=== PATIENT | female | born 1950 | race Caucasian/White ===

== ENCOUNTER 2020-10-11 06:00 | Outpatient (RCR) | payer MEDICARE, OTHER, SELFPAY | END 2020-10-29 23:59 | disposition home or self-care (01) | LOC: WPT 06:00 | PROVIDERS: PCP Physician Assistant Medical; Referring Provider Family Medicine; Visit Provider Family Medicine | DX: M48.05 Spinal stenosis, thoracolumbar region (principal) | CPT/HCPCS: 97110; 97112; 97140; 97161 ==

== ENCOUNTER 2020-10-30 06:00 | Outpatient (RCR) | payer MEDICARE, OTHER, SELFPAY | END 2020-11-29 23:59 | disposition home or self-care (01) | LOC: WPT 06:00 | PROVIDERS: PCP Physician Assistant Medical; Referring Provider Family Medicine; Visit Provider Family Medicine | DX: M48.05 Spinal stenosis, thoracolumbar region (principal) | CPT/HCPCS: 97110 ==

== ENCOUNTER → 2021-02-08 15:24 | Outpatient (BNVA) | payer MEDICARE, OTHER, SELFPAY | PROVIDERS: PCP Physician Assistant Medical; Visit Provider Internal Medicine | DX: K51.90 Ulcerative colitis, unspecified, without complications (principal) | CPT/HCPCS: 80053; 85651; 86140 ==

== ENCOUNTER → 2021-03-01 11:00 | Outpatient (BNVA) | payer MEDICARE, OTHER, SELFPAY | PROVIDERS: PCP Physician Assistant Medical; Visit Provider Internal Medicine | DX: D64.9 Anemia, unspecified (principal) | CPT/HCPCS: 82607; 82746; 83550; 84443; 85045 ==

== ENCOUNTER → 2021-06-08 09:05 | Outpatient (BNVA) | payer MEDICARE, OTHER, SELFPAY | PROVIDERS: PCP Internal Medicine; Visit Provider Physician Assistant | DX: M47.894 Other spondylosis, thoracic region (principal); M54.6 Pain in thoracic spine | CPT/HCPCS: 72072; 72110 ==

== ENCOUNTER 2021-08-01 16:03 | Outpatient (CLI) | payer MEDICARE, OTHER, SELFPAY ==
--- NOTE | 2021-08-01 16:45 | MR_ITS ---
WS: [id number] MRI LUMBAR SPINE NONCONTRAST HISTORY: M41.9 - Scoliosis, unspecified COMPARISON: 08/26/2020 TECHNIQUE: Sagittal and axial multisequence imaging is submitted. Reversal of the normal cervical lordosis with mild narrowing of the central cervical canal at C4-5 an d C5-6. Additional small disc protrusions throughout the thoracic spine without contact on the cord. Reactive marrow edema noted in the lower thoracic vertebral bodies. No fracture identified. Moderate LEFT curvature of the lumbar spine. Disregard narrowed and desiccated throughout the lumbar spine. No lumbar spine fracture. Conus terminates normally at L1-2 disc level. L5 anterolisthesis by 5 mm. L1-L2: Marked annular disc bulging with ligamentum flavum hypertrophy and facet arthritis. Mild centr al, bilateral subarticular recess and foraminal stenosis. L2-L3: Diffuse annular disc bulge. Bilateral moderate ligamentum flavum disease and facet arthritis. Disc encroachment upon the ventral thecal sac and lateral recesses. There is moderate narrowing of th e LEFT subarticular recess and proximal LEFT foramen. There is disc contact on the LEFT L2 and L3 ner ve roots. Mild disc contact on the RIGHT L3 traversing nerve root. L3-L4: Diffuse asymmetric disc bulging. Mild ligamentum flavum disease and facet arthritis. There is moderate central and bilateral subarticular recess stenosis. Slightly greater narrowing involving the LEFT subarticular recess. Mild foraminal narrowing. L4-L5: Diffuse asymmetric disc bulging. Ligamentum flavum and facet arthritis. Deformity thecal sac d ue to the scoliosis and spondylitic changes. There is mild central and bilateral subarticular recess stenosis. Only minimal foraminal narrowing. L5-S1: Diffuse annular disc bulge. Small central disc protrusion contacts the thecal sac. There is di sc contacting the thecal sac and ligamentum flavum hypertrophy. Mild RIGHT and moderate LEFT foramina l stenosis. There is encroachment upon the LEFT S1 and L5 nerve root. MR/MR lumbar spine wo con* [id number] IMPRESSION: 1. Moderate degenerative levoscoliosis lumbar spine. Levoscoliosis is contribu ting to the stenosis throughout the lumbar spine. 2. No fracture. 3. L5 anterolisthesis by 5 mm. 4. Moderate degenerative disc disease throughout the lumbar spine. 5. Mild central, bilateral subarticular recess and foraminal stenosis at L1-2. 6. Moderate LEFT subarticular recess and LEFT foramen. Disc contacts the LEFT L2 and L3 nerve roots. Mild central stenosis. 7. Moderate central and bilateral subarticular recess stenosis L3-4 due to dis c and facet arthritis. 8. Mild central and bilateral subarticular recess stenosis at L4-5. 9. Moderate LEFT foraminal stenosis and mild RIGHT foraminal stenosis at L5-S1 . Mild encroachment upon the LEFT L5 and S1 nerve roots.
== END 2021-08-01 16:04 | disposition home or self-care (01) ==
LOC: RAD 16:13
PROVIDERS: PCP Internal Medicine; Visit Provider Physician Assistant
DX: M41.9 Scoliosis, unspecified (principal); M51.36 Other intervertebral disc degeneration, lumbar region
CPT/HCPCS: 72148

== ENCOUNTER → 2021-08-08 11:25 | Outpatient (BNVA) | payer MEDICARE, OTHER, SELFPAY | PROVIDERS: PCP Internal Medicine; Visit Provider Physician Assistant | DX: M41.9 Scoliosis, unspecified (principal); M51.36 Other intervertebral disc degeneration, lumbar region; M48.061 Spinal stenosis, lumbar region without neurogenic claudication | CPT/HCPCS: 99204; 99999 ==

== ENCOUNTER → 2021-08-09 09:12 | Outpatient (BNVA) | payer MEDICARE, OTHER, SELFPAY | PROVIDERS: PCP Internal Medicine; Referring Provider Physician Assistant; Visit Provider Anesthesiology Pain Medicine | DX: G89.29 Other chronic pain (principal); M51.36 Other intervertebral disc degeneration, lumbar region; M41.9 Scoliosis, unspecified; M48.061 Spinal stenosis, lumbar region without neurogenic claudication; Z79.891 Long term (current) use of opiate analgesic; Z87.891 Personal history of nicotine dependence; M79.604 Pain in right leg; M79.605 Pain in left leg | CPT/HCPCS: 99205 ==

== ENCOUNTER → 2021-09-26 11:08 | Outpatient (BNVA) | payer MEDICARE, OTHER, SELFPAY | PROVIDERS: PCP Internal Medicine; Visit Provider Anesthesiology Pain Medicine | DX: G89.29 Other chronic pain (principal); M48.061 Spinal stenosis, lumbar region without neurogenic claudication; M51.36 Other intervertebral disc degeneration, lumbar region; M41.9 Scoliosis, unspecified; M79.604 Pain in right leg; M79.605 Pain in left leg; Z79.891 Long term (current) use of opiate analgesic; Z87.891 Personal history of nicotine dependence | CPT/HCPCS: 99212 ==

== ENCOUNTER 2021-12-25 06:53 | Day surgery (SDC) | payer MEDICARE, OTHER, SELFPAY ==
[2021-12-21 08:34] VITALS: BMI 34.4
[2021-12-25 07:15] VITALS: BP 176/90; PULSE 64; RESP 18; TEMP 36.1; O2SAT 95
[2021-12-25] MEDS: sodium chloride 0.9% 1,000 ML 30 ML IV (07:29)
--- NOTE | 2021-12-25 07:45 | W.PM.OPSFHP ---
Same Day Surgery H&P Indication for Procedure/HPI DATE OF PROCEDURE: December 25, 2021 CHIEF COMPLAINT/INDICATIONFOR SURGICAL PROCEDURE: UC PREOP DIAGNOSIS: UC PLANNED PROCEDURE: Operation Date: 12/25/21 08:45 Proposed Procedures p colonoscopy 63657/K51.90(Not Applicable) - Geovanny Norman MD Medications/Allergies* Home Medications Medication Instructions Recorded Confirmed Type acetaminophen 500 mg tablet 500 mg PO Q6H PRN Pain 01/23/21 12/25/21 History calcium carbonate 300 mg (750 mg) 300 mg PO BID PRN Heartburn 01/23/21 12/25/21 History chewable tablet (Tums E-X) clobetasol 0.05 % topical ointment 1 applic topical BID 01/23/21 12/25/21 History fluticasone propionate 50 1 spray intranasal DAILY PRN 01/23/21 12/21/21 History mcg/actuation nasal allergies spray,suspension (Allergy Relief (fluticasone)) loteprednol etabonate 0.38 % eye 1 drp ophthalmic (eye) TID PRN Dry 01/23/21 12/25/21 History gel drops Eyes buspirone 10 mg tablet 10 mg PO BID 02/08/21 12/25/21 History citalopram 10 mg tablet 10 mg PO DAILY 09/14/21 12/25/21 History cannabis 250mg as directed 2XD PRN Pain 10/04/21 12/06/21 History Allergies/Adverse Reactions Allergy/AdvReac Type Severity Reaction Status Date / Time amoxicillin Allergy Severe swelling Verified 12/21/21 08:27 diclofenac Allergy Severe nausea and Verified 12/21/21 08:27 vomiting meperidine Allergy Intermediate Unknown Verified 12/21/21 08:27 Current Medications: Generic Name Dose Route Start Last Admin Trade Name Freq PRN Reason Stop Dose Admin Sodium Chloride 1,000 mls @ 30 mls/hr 12/25/21 07:15 12/25/21 07:29 Sodium Chloride 0.9% IV 30 mls/hr .Q24H LAN Administration Pertinent History/Comorbid Conditions* Family History (Updated 10/04/21 @ 10:48 by Blanca Lira) Dementia Sister Mother Lung disease Father Cancer Sister Hypertension Mother Stroke Father Social History Smoking and tobacco status: former smoker Alcohol intake: current Alcohol intake frequency: few times a week Pertinent Exam Findings alert, oriented x 3, clear to auscultation bilaterally, regular rate & rhythm, operative site marked and procedure specific exam findings Recommendations Surgery/Procedure today Coding Level of Care Code Acute Sales Account Director for [facility] Adelita
--- NOTE | 2021-12-25 08:46 | ANES.PREANE2 ---
Pre-Anesthetic Assessment Height/Weight: Height 1.7 m Weight 99.79 kg Temp Pulse Resp BP Pulse Ox O2 Del Method 97.0 F L 64 18 176/90 95 12/25/21 07:15 12/25/21 07:15 12/25/21 07:15 12/25/21 07:15 12/25/21 07:15 12/25/21 07:15 Preop Diagnosis: UC Operation Date: 12/25/21 08:45 Proposed Procedures p colonoscopy 45846/K51.90(Not Applicable) - Geovanny Norman MD Familial anesthetic complications: none Was Beta Debby taken within 24 hours: N/A Was Clonidine taken within 24 hours: N/A Last intake: Intake Last Liquid Date 12/24/21 Last Liquid Time 21:00 Last Solid Date 12/23/21 Last Solid Time 18:00 Social No alcohol and No tobacco Exam alert, oriented x 3, clear to auscultation bilaterally and regular rate & rhythm Airway Submandibular: within normal limits Cervical ROM: within normal limits Mallampati: Class II Dentition: full CV/HEM Anemia and Hypertension Metabolic Morbid Obesity and Thyroid Disease [facility] [place] Lower Back Pain Anesthetic Plan ASA status: 3 Anesthesia: MAC Medications/Allergies Home Medications Medication Instructions Recorded Confirmed Last Taken Type acetaminophen 500 mg tablet 500 mg PO Q6H PRN Pain 01/23/21 12/25/21 1 Month Ago History ~11/24/21 calcium carbonate 300 mg (750 mg) 300 mg PO BID PRN Heartburn 01/23/21 12/25/21 2 Months Ago History chewable tablet (Tums E-X) ~10/24/21 clobetasol 0.05 % topical ointment 1 applic topical BID 01/23/21 12/25/21 3 Months Ago History ~09/24/21 fluticasone propionate 50 1 spray intranasal DAILY PRN 01/23/21 12/21/21 Unknown History mcg/actuation nasal allergies spray,suspension (Allergy Relief (fluticasone)) loteprednol etabonate 0.38 % eye 1 drp ophthalmic (eye) TID PRN Dry 01/23/21 12/25/21 12/25/21 05:00 History gel drops Eyes buspirone 10 mg tablet 10 mg PO BID 02/08/21 12/25/21 12/24/21 History amlodipine 2.5 mg tablet 2.5 mg PO DAILY #90 tabs 09/04/21 12/25/21 12/24/21 Rx mesalamine 1.2 gram tablet,delayed 4.8 g PO DAILY #120 tabs 09/04/21 12/25/21 12/24/21 Rx release (Lialda) citalopram 10 mg tablet 10 mg PO DAILY 09/14/21 12/25/21 12/24/21 History cannabis 250mg as directed 2XD PRN Pain 10/04/21 12/06/21 3 Months Ago History ~09/24/21 adalimumab 40 mg/0.8 mL 80 mg (1.6 mL) SUBCUT Q10D Q10d #6 10/11/21 12/25/21 12/24/21 Rx subcutaneous syringe kit (Humira) ea levothyroxine 25 mcg capsule 25 mcg PO DAILY #30 caps 11/28/21 12/25/21 12/25/21 05:00 Rx lisinopril 20 mg tablet 20 mg PO DAILY #90 tabs 12/08/21 12/25/21 12/24/21 Rx Allergies Allergy/AdvReac Type Severity Reaction Status Date / Time amoxicillin Allergy Severe swelling Verified 12/21/21 08:27 diclofenac Allergy Severe nausea and Verified 12/21/21 08:27 vomiting meperidine Allergy Intermediate Unknown Verified 12/21/21 08:27 Current Medications Generic Name Dose Route Start Last Admin Trade Name Freq PRN Reason Stop Dose Admin Sodium Chloride 1,000 mls @ 30 mls/hr 12/25/21 07:15 12/25/21 07:29 Sodium Chloride 0.9% IV 30 mls/hr .Q24H LAN Administration PFSH Anesthesia Family History Sister Cancer Sister Dementia Mother Dementia Hypertension Father Lung disease Stroke Social History Smoking and tobacco status: former smoker Alcohol intake: current Alcohol intake frequency: few times a week Data Anesthesia Cardiac Studies: No Data to Display
--- NOTE | 2021-12-25 09:14 | ANE.PACU2 ---
Inpatient post-anesthesia follow up: Airway intact: Yes Vital signs: Temperature 97.0 F Pulse Rate 64 Respiratory Rate 18 Blood Pressure 176/90 Pulse Oximetry 95 Oxygen Delivery Me thod Room Air Oxygen Flow Rate Fraction of Inspir ed Oxygen Hydration adequate: Yes Nausea and vomiting: No Pain level: 1 Mental status: Baseline
[2021-12-25 09:15] VITALS: BP 137/76; PULSE 65; RESP 18; TEMP 36.1; O2SAT 96
[2021-12-25 09:24] VITALS: BP 138/80; PULSE 64; RESP 18; O2SAT 96
--- NOTE | 2021-12-25 15:48 | ANE.PACU2 ---
Inpatient post-anesthesia follow up: Airway intact: Yes Vital signs: Temperature 97.0 F Pulse Rate 64 Respiratory Rate 18 Blood Pressure 138/80 Pulse Oximetry 96 Oxygen Delivery Me thod Room Air Oxygen Flow Rate Fraction of Inspir ed Oxygen Hydration adequate: Yes Nausea and vomiting: No Pain level: 1 Mental status: Baseline
== END 2021-12-25 09:35 | disposition home or self-care (01) ==
PROVIDERS: PCP Internal Medicine; Visit Provider Internal Medicine
PROC: 0DJD8ZZ Inspection of Lower Intestinal Tract, Via Natural or Artificial Opening Endoscopic (ICD-10-PCS; CPT 45378; principal; 2021-12-25 08:45)
DX: K51.90 Ulcerative colitis, unspecified, without complications (principal); I10 Essential (primary) hypertension; E66.01 Morbid (severe) obesity due to excess calories; Z68.34 Body mass index [BMI] 34.0-34.9, adult; Z87.891 Personal history of nicotine dependence
CPT/HCPCS: 45380; 82274; 83630; 87493; 87506; 88305; J2704; J7030

== ENCOUNTER 2022-05-02 10:08 | Outpatient (CLI) | payer MEDICARE, OTHER, SELFPAY ==
--- NOTE | 2022-05-02 10:15 | MM_ITS ---
WS: [id number] BILATERAL SCREENING DIGITAL TOMOSYNTHESIS MAMMOGRAM WITH CAD HISTORY: SCREENING COMPARISON: 12/29/2020, 12/08/2019 Bilateral CC and MLO views with tomosynthesis and synthetic mammography submitted. Computer aided det ection analyzed. Breast composition: There are scattered areas of fibroglandular density. No suspicious masses, microc alcifications or architectural distortion. Benign calcifications. Lymph node upper outer quadrant RIG HT breast. MM/[place] [id number] IMPRESSION: BI-RADS: 2-Benign FOLLOW UP: 1 Year Follow-up
== END 2022-05-02 10:09 | disposition home or self-care (01) ==
LOC: RAD 10:09
PROVIDERS: PCP Internal Medicine; Visit Provider Internal Medicine
DX: Z12.31 Encounter for screening mammogram for malignant neoplasm of breast (principal); G89.29 Other chronic pain; M54.12 Radiculopathy, cervical region; M47.812 Spondylosis without myelopathy or radiculopathy, cervical region; M48.061 Spinal stenosis, lumbar region without neurogenic claudication; M51.36 Other intervertebral disc degeneration, lumbar region; M41.9 Scoliosis, unspecified
CPT/HCPCS: 72040; 77063; 77067; 99214

== ENCOUNTER 2022-05-07 12:33 | Outpatient (CLI) | payer MEDICARE, OTHER, SELFPAY ==
--- NOTE | 2022-05-07 13:00 | MR_ITS ---
WS: [id number] MRI CERVICAL SPINE NONCONTRAST HISTORY: M54.12 - Radiculopathy, cervical region COMPARISON: None available. Technique: Multiplanar, multisequence noncontrast imaging of the cervical spine. Straightening and reversal normal cervical lordosis centered at C4-5. Disc spaces are all moderately narrowed. C3 anterolisthesis by 3 mm. C5 retrolisthesis by 3 mm. Signal within the cervical cord is normal. Visualized posterior fossa is unremarkable. Craniocervical junction, C1 and C2 relationship, odontoid process and soft tissues are normal. C2-C3: No stenosis. Bilateral facet joint arthritis. Small amount of edema involving the RIGHT facet joint. C3-C4: Mild disc bulging and osteophytic ridging. Very mild bilateral foraminal stenosis. C4-C5: Moderate osteophytic ridging encroaching upon the ventral thecal sac and foramina. No disc pro trusions. Mild central with moderate foraminal stenosis. C5-C6: Narrowing of the central canal due to retrolisthesis of C5. Near complete effacement at C5-6 o f CSF. Moderate to severe central and bilateral foraminal stenosis. C6-C7: Mild osteophytic ridging with diffuse disc bulging and a central disc protrusion. Mild central and RIGHT foraminal stenosis. Moderate LEFT foraminal stenosis. C7-T1: Small central disc protrusion. Very mild foraminal stenosis. Paraspinal soft tissue are normal. MR/MR cervical spin wo con* [id number] IMPRESSION: 1. Advanced spondylitic changes throughout the cervical spine. 2. Reversal the normal cervical lordosis centered at C4-5. 3. Moderate to severe central and bilateral foraminal stenosis at C5-6 predom inantly due to osteophyte and bone hypertrophy. 4. Mild RIGHT facet joint arthropathy at C2-3. 5. Mild central with moderate foraminal stenosis at C4-5. 6. Moderate LEFT foraminal stenosis at C6-7 with mild central and RIGHT forami nal stenosis. 7. Very small central disc protrusion at C7-T1.
== END 2022-05-07 12:34 | disposition home or self-care (01) ==
LOC: RAD 12:38
PROVIDERS: PCP Internal Medicine; Visit Provider Anesthesiology Pain Medicine
DX: M54.12 Radiculopathy, cervical region (principal); M50.23 Other cervical disc displacement, cervicothoracic region; M48.02 Spinal stenosis, cervical region; M47.812 Spondylosis without myelopathy or radiculopathy, cervical region
CPT/HCPCS: 72141

== ENCOUNTER → 2022-06-05 09:06 | Outpatient (BNVA) | payer MEDICARE, OTHER, SELFPAY | PROVIDERS: PCP Internal Medicine; Visit Provider Anesthesiology Pain Medicine | DX: M79.18 Myalgia, other site (principal); G89.29 Other chronic pain; M47.812 Spondylosis without myelopathy or radiculopathy, cervical region; M48.061 Spinal stenosis, lumbar region without neurogenic claudication; M51.36 Other intervertebral disc degeneration, lumbar region; M41.9 Scoliosis, unspecified | CPT/HCPCS: 20553; 99214 ==

== ENCOUNTER → 2022-07-04 09:10 | Outpatient (BNVA) | payer MEDICARE, OTHER, SELFPAY | PROVIDERS: PCP Internal Medicine; Visit Provider Anesthesiology Pain Medicine | DX: G89.29 Other chronic pain (principal); M48.061 Spinal stenosis, lumbar region without neurogenic claudication; M41.9 Scoliosis, unspecified; M51.36 Other intervertebral disc degeneration, lumbar region; M47.812 Spondylosis without myelopathy or radiculopathy, cervical region; M79.604 Pain in right leg; M79.605 Pain in left leg | CPT/HCPCS: 99214 ==

== ENCOUNTER → 2022-08-01 09:32 | Outpatient (BNVA) | payer MEDICARE, OTHER, SELFPAY | PROVIDERS: PCP Internal Medicine; Visit Provider Anesthesiology Pain Medicine | DX: G89.29 Other chronic pain (principal); M48.061 Spinal stenosis, lumbar region without neurogenic claudication; M51.36 Other intervertebral disc degeneration, lumbar region; M47.812 Spondylosis without myelopathy or radiculopathy, cervical region; M41.9 Scoliosis, unspecified | CPT/HCPCS: 99214 ==

== ENCOUNTER 2022-08-20 09:55 | Emergency (ER) | payer MEDICARE, OTHER, SELFPAY ==
[2022-08-20] VITALS (30 sets, daily range): BP systolic 161–228; BP diastolic 74–118; PULSE 54–64; RESP 15–25; TEMP 36.4; O2SAT 94–98; BMI 34.4
--- NOTE | 2022-08-20 10:04 | ECG_ITS ---
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 Measurements Intervals [employer] Rate: 57 P: 44 MS: 226 QRS: 12 QRSD: 110 T: 30 QT: 397 QTc: 387 Interpretive Statements SINUS BRADYCARDIA WITH FIRST DEGREE AV BLOCK No previous ECG available for comparison Electronically Signed On 08-20-2022 16:28:57 CDT by Lakhwinder Morrow M.D. [id number] f
--- NOTE | 2022-08-20 10:24 | ED_ITS ---
HPI - Chest Pain General: Chief Complaint: Chest Pain Stated Complaint: High bloodpressure and chest heaviness Time Seen by Provider: 08/20/22 10:06 Source: patient Mode of arrival: ambulatory History of Present Illness: 72 female who presents to the emergency room with worsening blood pressure. Mild chest discomfort she denies any shortness of breath. She has been taking all of her regular medications. No radiation to the neck arms or back no known history of coronary artery disease. MD complaint: chest pain Onset (ago): minute(s) Timing of current episode: episodic Prior episodes: No Onset: during rest Pain radiation: none Severity: mild Quality: tightness, aching and heaviness Relieving factors: nothing Exacerbating factors: nothing Associated symptoms: Deny abdominal pain, diaphoresis, dyspnea, fever(s), leg edema, nausea, palpitations, sense of impending doom, syncope or vomiting Treatment prior to arrival: none Review of Systems Const: Denies: fever(s), chills, fatigue, malaise or diaphoresis Card: Reports: chest pain; Denies: palpitations or syncope Resp: Denies: dyspnea, productive cough, non-productive cough or wheezing GI: Denies: abdominal pain, nausea or vomiting : Denies: flank pain, difficulty voiding, dysuria, urinary frequency or urinary urgency Musc: Denies: neck pain or back pain Skin/Breast: Denies: rash or pruritus PFSH ED PFSH: Family History Sister Cancer Sister Dementia Mother Dementia Hypertension Father Lung disease Stroke Social History Smoking and tobacco status: former smoker Second hand smoke exposure: No Alcohol intake: current Alcohol intake frequency: few times a week Alcohol type: wine Physical Exam Const: GENERAL APPEARANCE: cooperative and comfortable ORIENTATION/CONSCIOUSNESS: Yes awake, Yes oriented to person, Yes oriented to place and Yes oriented to time HENMT: COMMON NORMALS: normocephalic, atraumatic and hearing grossly normal bilaterally HEAD & SCALP: normocephalic and atraumatic Resp: COMMON NORMALS: normal respiratory effort, No retractions, No use of accessory muscles and clear to auscultation bilaterally AUSCULTATION: clear to auscultation bilaterally Cardio: COMMON NORMALS: regular rate, regular rhythm and No murmurs present (Cardio) RATE: regular rate RHYTHM: regular rhythm GI: COMMON NORMALS: Soft to palpation and No hepatosplenomegaly present AUSCULTATION: Yes normoactive bowel sounds PALPATION: Yes Soft to palpation, No Tenderness to palpation present (GI), No Guarding due to palpation present (GI) and Yes No hepatosplenomegaly present Extremity: COMMON NORMALS: normal to inspection, capillary refill normal, no clubbing, cyanosis or edema, no calf tenderness and no pedal edema Neuro: SENSORIUM/ORIENTATION: Yes oriented to person, Yes oriented to place and Yes oriented to time Skin: COMMON NORMALS: no rashes or lesions noted GENERAL SKIN EXAM: no rashes or lesions noted Course Vital Signs: Vital signs: Vital Signs Temperature 97.5 F L 08/20/22 09:57 Pulse Rate 54 L 08/20/22 13:00 Respiratory Rate 21 H 08/20/22 13:00 Blood Pressure 188/74 08/20/22 13:00 Pulse Oximetry 95 08/20/22 12:40 Oxygen Delivery Me thod Room Air 08/20/22 09:57 MDM - Chest Pain Medical Decision Making EKG and cardiac enzymes are negative. Blood pressure is improved somewhat. We will discharge patient home advised her to increase her amlodipine to 10 mg daily and set up for a Lexiscan sestamibi stress test. Advised patient take aspirin daily as well. Return if has further problems per Medical Records I reviewed the patient's medical records. Lab Data I reviewed the patient's lab results. 08/20/22 10:40 08/20/22 10:40 Radiology Impressions Chest X-Ray 08/20/22 10:28 IMPRESSION: Left basilar consolidation, may be consistent with pneumonia or atelectasis. Laboratory Results WBC 7.1 10^3/uL (4.0-10.0) 08/20/22 10:40 RBC 3.71 10^6/uL (4.1-5.3) L 08/20/22 10:40 Hgb 11.4 g/dL (11.5-15.3) L 08/20/22 10:40 Hct 36.0 % (37.0-47.0) L 08/20/22 10:40 MCV 97.0 fl (81-99) 08/20/22 10:40 MCH 30.7 pg (28.0-34.0) 08/20/22 10:40 MCHC 31.7 g/dL (30.0-36.0) 08/20/22 10:40 RDW 12.3 % (12.1-15.1) 08/20/22 10:40 Plt Count 227 10^3/cmm (130-400) 08/20/22 10:40 MPV 9.9 fL (7.4-10.4) 08/20/22 10:40 Neut % (Auto) 60.8 % 08/20/22 10:40 Lymph % (Auto) 29.5 % 08/20/22 10:40 [place] % (Auto) 7.9 % 08/20/22 10:40 Eos % (Auto) 0.7 % 08/20/22 10:40 Baso % (Auto) 0.4 % 08/20/22 10:40 Neut # (Auto) 4.34 10^3/uL (1.8-7.7) 08/20/22 10:40 Lymph # (Auto) 2.1 10^3/uL (0.8-4.8) 08/20/22 10:40 [place] # (Auto) 0.6 10^3/uL (0.2-0.9) 08/20/22 10:40 Eos # (Auto) 0.1 10^3/uL (0.0-0.8) 08/20/22 10:40 Baso # (Auto) 0.0 10^3/uL (0.0-0.1) 08/20/22 10:40 Nucleated RBC % (auto) 0 % 08/20/22 10:40 Nucleated RBCs # 0.0 /100WBC 08/20/22 10:40 Sodium 142 mmol/L (136-145) 08/20/22 10:40 Potassium 3.7 mmol/L (3.5-5.1) 08/20/22 10:40 Chloride 105 mmol/L (98-107) 08/20/22 10:40 Carbon Dioxide 25 mmol/L (22-29) 08/20/22 10:40 Anion Gap 15.7 (5-19) 08/20/22 10:40 BUN 19 mg/dL (8-23) 08/20/22 10:40 Creatinine 0.9 mg/dL (0.5-0.9) 08/20/22 10:40 GFR Calculation Not Reportable 08/20/22 10:40 Glucose 85 mg/dL (65-115) 08/20/22 10:40 Calculated Osmolality 296 mOsm/kg (285-295) H 08/20/22 10:40 Calcium 8.9 mg/dL (8.5-10.5) 08/20/22 10:40 Total Bilirubin 0.2 mg/dL (0.15-1.2) 08/20/22 10:40 AST 14 U/L (0-32) 08/20/22 10:40 ALT 15 U/L (0-33) 08/20/22 10:40 Alkaline Phosphatase 85 U/L (35-105) 08/20/22 10:40 Troponin T Baseline 6 ng/L (0-10) 08/20/22 10:40 Troponin T 120 Minute 6.00 ng/L (0-10) 08/20/22 12:43 Delta Troponin T 0 ABS# (0-10) 08/20/22 12:43 Total Protein 6.8 g/dL (6.6-8.7) 08/20/22 10:40 Albumin 4.3 g/dL (3.5-5.2) 08/20/22 10:40 Globulin 2.5 g/dL (1.3-4.6) 08/20/22 10:40 Discharge Plan Discharge Patient Disposition: Home Clinical Impression: Atypical chest pain, HTN (hypertension) Condition: Stable Prescriptions: New amlodipine 10 mg tablet 10 mg PO DAILY Qty: 30 0RF Discontinued amlodipine 2.5 mg tablet 2.5 mg PO DAILY Qty: 90 3RF No Action clobetasol 0.05 % ointment 1 applic topical BID acetaminophen 500 mg tablet 500 mg PO Q6H PRN (Reason: Pain) calcium carbonate [Tums E-X] 300 mg (750 mg) tablet,chewable 300 mg PO BID PRN (Reason: Heartburn) fluticasone propionate [Allergy Relief (fluticasone)] 50 mcg/actuation spray,suspension 1 spray intranasal DAILY PRN (Reason: allergies) Rx Instructions: administer into each nostril budesonide 9 mg tablet,delayed and ext.release 9 mg PO DAILY Qty: 30 3RF citalopram 10 mg tablet 10 mg PO DAILY levothyroxine 25 mcg capsule 25 mcg PO DAILY Qty: 30 3RF lisinopril 20 mg tablet 20 mg PO DAILY Qty: 90 4RF buspirone 10 mg tablet 10 mg PO BID Qty: 60 3RF oxybutynin chloride 5 mg tablet extended release 24hr 5 mg PO DAILY cyclosporine 0.05 % Drops 1 drp OPHTHALMIC (EYE) Q12H Rx Instructions: both eyes Discharge Orders: Discharge ED (Routine); Ordered 08/20/22 Ordered By: Luis Enrique Perez Referrals: Geovanny Norman MD [Primary Care Provider] - Discharge Diet: Usual diet Discharge Activity: Limit activity as instructed Patient Instructions: Opioid Safety, Pain Management Activity Restrictions/Additional Instructions: You are seen today for elevated blood pressure and chest discomfort. Your cardiac enzymes and EKGs were negative. We will set you up for an outpatient Lexiscan sestamibi stress test recommend you increase your amlodipine to 10 mg daily and follow-up with your doctor within the next week to reevaluate blood pressure return to the ER if you have further problems. Coding Level of Care Code ED Drone Software Development Engineer for Aggie Ureña
--- NOTE | 2022-08-20 10:28 | XRR_ITS ---
PROCEDURE INFORMATION: Exam: XR Chest Exam date and time: 08/20/2022 10:38 AM Age: 72 years old Clinical indication: Cough; Additional info: Chest pain/cough TECHNIQUE: Imaging protocol: Radiologic exam of the chest. Views: 1 view. COMPARISON: MR cervical spin wo con* [id number] 05/07/2022 1:04 PM FINDINGS: Lungs: Left basilar consolidation. The remainder of the lung parenchyma is clear. Pleural spaces: No pneumothorax. No pleural effusion. Heart/Mediastinum: The heart is mildly enlarged for size similar to prior exam. Bones/joints: Unremarkable. XR/XR chest 1V portable [id number] IMPRESSION: Left basilar consolidation, may be consistent with pneumonia or atelectasis.
[2022-08-20 10:46] LABS: Basophils % 0.4 %; Eosinophils # 0.1 10^3/uL (0.0-0.8); Eosinophils % 0.7 %; Hemoglobin 11.4 g/dL (11.5-15.3); Lymphocytes # 2.1 10^3/uL (0.8-4.8); Lymphocytes % 29.5 %; Mean Corpuscular HGB Conc 31.7 g/dL (30.0-36.0); Mean Corpuscular Hemoglobin 30.7 pg (28.0-34.0); Mean Platelet Volume 9.9 fL (7.4-10.4); Monocytes # 0.6 10^3/uL (0.2-0.9); Monocytes % 7.9 %; Neutrophils # 4.34 10^3/uL (1.8-7.7); Neutrophils % 60.8 %; Nucleated Red Blood Cells % 0 %; Platelet Count 227 10^3/cmm (130-400); Red Blood Count 3.71 10^6/uL (4.1-5.3); Red Cell Distribution Width 12.3 % (12.1-15.1); White Blood Count 7.1 10^3/uL (4.0-10.0)
[2022-08-20 11:02] LABS: Alanine Aminotransferase 15 U/L (0-33); Albumin Level 4.3 g/dL (3.5-5.2); Alkaline Phosphatase 85 U/L (35-105); Anion Gap 15.7 (5-19); Aspartate Amino Transferase 14 U/L (0-32); Blood Urea Nitrogen 19 mg/dL (8-23); Calcium 8.9 mg/dL (8.5-10.5); Carbon Dioxide 25 mmol/L (22-29); Chloride 105 mmol/L (98-107); Globulin 2.5 g/dL (1.3-4.6); Glucose 85 mg/dL (65-115); Osmolality Calculated 296 mOsm/kg (285-295); Potassium 3.7 mmol/L (3.5-5.1); Sodium 142 mmol/L (136-145); Total Bilirubin 0.2 mg/dL (0.15-1.2); Total Protein 6.8 g/dL (6.6-8.7)
[2022-08-20 11:03] LABS: Troponin(5th) Baseline 6 ng/L (0-10)
--- NOTE | 2022-08-20 12:40 | ECG_ITS ---
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 Measurements Intervals [place] Rate: 53 P: -11 CA: 227 QRS: 36 QRSD: 99 T: 18 QT: 422 QTc: 399 Interpretive Statements SINUS BRADYCARDIA WITH FIRST DEGREE AV BLOCK Compared to ECG 08/20/2022 10:04:12 No significant changes Electronically Signed On 08-20-2022 16:34:48 CDT by Lakhwinder Morrow M.D. [email or web address] medical [email or web address] memorial [email or web address]/store/OM/[id number]
[2022-08-20] MEDS: hyDRALAzine 20 mg/mL INJ 1 mL 10 MG IVP (13:05)
[2022-08-20 13:49] LABS: Troponin 5 2HR Delta 0 ABS# (0-10)
--- NOTE | 2022-08-20 14:37 | PC.SOCIAL ---
Addendum entered by Aundrea Rashid 11/08/22 13:58: Patient had a stress test scheduled - patient did attend appointment Original Note: Orders for stress test faxed to centralized scheduling.
== END 2022-08-20 14:00 | disposition home or self-care (01) ==
PROVIDERS: Emergency Provider Family Medicine; PCP Internal Medicine
DX: R07.89 Other chest pain (principal); I10 Essential (primary) hypertension; Z87.891 Personal history of nicotine dependence
CPT/HCPCS: 71045; 80053; 84484; 85025; 93005; 96374; 99285; J0360

== ENCOUNTER 2022-09-10 06:31 | Outpatient (CLI) | payer MEDICARE, OTHER, SELFPAY ==
[2022-09-10 07:12] VITALS: BMI 34.4
--- NOTE | 2022-09-10 07:13 | ECG_ITS ---
[facility] Test Date: 2022-09-10 Pat Name: Stephanie Dwyer Department: Room: Gender: Female Fws Faculty Assistant: Keyla Solitario : 1950 Requested By: Luis Enrique Manley Order Number: [id number] Nancy MD: Lakhwinder Morrow M.D. Interpretive Statements NAME OF STUDY: LEXISCAN SESTAMIBI STRESS TEST INDICATION: [Chest Pain, ] Procedure: At the baseline, the blood pressure was 126/78 mmHg with a heart rate of 72 bpm. The electrocardiogram showed normal sinus rhythm, normal axis with normal ST and T's. The Lexiscan was infused over a period of 20 seconds. A total of 0.4 mg of Lexiscan was infused. The stress phase was continued for a total of 5 minutes. Heart rate was at the end of stress phase was 84 bpm and a blood pressure of 128/69 mmHg. The EKG at the peak infusion revealed normal sinus rhythm with no significant ST-T wave changes. Sestamibi was injected 20 seconds after the Lexiscan infusion. Blood pressure at the end of recovery phase was 134/63 mmHg with a heart rate of 83 bpm. Conclusion: 1. Normal EKG response to Lexiscan infusion 2. No Lexiscan induced chest pain or cardiac arrhythmia. 3. Normal blood pressure and heart rate response. 4. Sestamibi/sestamibi perfusion scan pending; see separate report. Electronically Signed On 09-21-2022 14:34:22 CDT by Lakhwinder Morrow M.D. [id number]
--- NOTE | 2022-09-10 07:13 | NMCV_ITS ---
NM jeana perf SPECT r/s* [id number] Stephanie Dwyer Age: 72 Gender: F : 1950 Exam Date: 09/10/2022 07:35 Ordering Phys: Luis Enrique Perez DO Technologist: OPHELIA Matias Exam Location: [facility] Indications: CHEST PAIN STRESS TEST [facility] IMAGE PROTOCOL Rest/Stress 1 Lexiscan Day Radiopharmaceutical Dose (mCi) Administration Site Administered by Rest: Tc-99m 10.5 IV OPHELIA Garcia Sestamibi Stress:Tc-99m 32.5 IV OPHELIA Garcia Sestamibi Rest: 10-Sep-2022 60 Discovery 630 Stress: 10-Sep-2022 30 Discovery 630 0.4mg Lexiscan. Images obtained in supine and prone position. SPECT RESULTS Technical Quality: Excellent Raw Data Analysis: Normal Image Corrections: No attenuation or motion correction applied Summed Stress Score: 7 Summed Rest Score: 10 Summed Difference Score: 1 PERFUSION FINDINGS That is medium in mostly fixed perfusion defect noted on inferior and inferolateral wall. This is consistent with medium sized area of prior infarct with minimal julia-infarct ischemia. FUNCTIONAL RESULTS (calculated via Gated SPECT) Stress Image LV EF (%): 68 Stress EDV (mL):106 TID: 0.9 Stress ESV (mL):34 FUNCTIONAL FINDINGS: There is normal left ventricular systolic function. IMPRESSIONS 1. 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 2. LV systolic function is normal. Lakhwinder Morrow MD (Electronically Signed) Final Date: 13 September 2022 13:11 S
[2022-09-10] MEDS: regadenoson 0.4 Mg/5 ml Syringe IVP (08:18)
[2022-09-10 08:54] VITALS: BP 134/63; PULSE 83
== END 2022-09-10 06:32 | disposition home or self-care (01) ==
LOC: CDL 06:32
PROVIDERS: PCP Internal Medicine; Visit Provider Family Medicine
DX: R07.9 Chest pain, unspecified (principal)
CPT/HCPCS: 36415; 78452; 93017; 96374; A9500; J2785

== ENCOUNTER → 2022-09-19 09:02 | Outpatient (BNVA) | payer MEDICARE, OTHER, SELFPAY | PROVIDERS: PCP Internal Medicine; Visit Provider Anesthesiology Pain Medicine | DX: G89.29 Other chronic pain (principal); M48.061 Spinal stenosis, lumbar region without neurogenic claudication; M41.9 Scoliosis, unspecified; M51.36 Other intervertebral disc degeneration, lumbar region; M47.812 Spondylosis without myelopathy or radiculopathy, cervical region | CPT/HCPCS: 99214 ==

== ENCOUNTER → 2022-10-03 10:08 | Outpatient (BNVA) | payer MEDICARE, OTHER, SELFPAY | PROVIDERS: PCP Internal Medicine; Visit Provider Internal Medicine Cardiovascular Disease | DX: R94.39 Abnormal result of other cardiovascular function study (principal); I10 Essential (primary) hypertension; R07.89 Other chest pain; D64.9 Anemia, unspecified; R06.02 Shortness of breath; Z87.891 Personal history of nicotine dependence | CPT/HCPCS: 99205 ==

== ENCOUNTER 2022-10-18 08:19 | Outpatient (CLI) | payer MEDICARE, OTHER, SELFPAY ==
--- NOTE | 2022-10-18 08:45 | USCV_ITS ---
Stephanie Dwyer Age: 72 Gender: F : 1950 Exam Date: 10/18/2022 08:55 Ordering Phys: Ghazal Orozco MD ([email or web address]) Technologist: Uma Boyce [place] [facility] [place]: CP. BP: 138 / 80 HR: 54 Rhythm: Sinus Technical Quality: Adequate MEASUREMENTS (Male / Female) Normal Values 2D ECHO LV Diastolic Diameter PLAX 5.3 cm 4.2 - 5.9 / 3.9 - 5.3 cm LV Systolic Diameter PLAX 3.3 cm IVS Diastolic Thickness 1.3 cm 0.6 - 1.0 / 0.6 - 0.9 cm IVS Systolic Thickness 1.5 cm LVPW Diastolic Thickness 0.9 cm 0.6 - 1.0 / 0.6 - 0.9 cm LVPW Systolic Thickness 1.7 cm LVOT Diameter 2.0 cm LV Ejection Fraction 2D Teich 68.3 % LV Ejection Fraction MOD 2C 66.2 % LV Ejection Fraction 2C AL 67.3 % LA Diameter 4.4 cm LA Width 4.7 cm LA Height 5.9 cm RA Width 4.0 cm RA Height 5.2 cm Aorta at Sinotubular Diameter 2.5 cm IVC Diameter 1.8 cm M-MODE Aortic Annulus Diameter 2.9 cm LA Ao Ratio MM 1.7 MV E Point Septal Separation 0.4 cm DOPPLER AV Peak Velocity 153.0 cm/s LVOT Peak Velocity 102.0 cm/s AV Area Cont Eq vti 2.0 cm squared AV Area Cont Eq pk 2.1 cm squared MV Peak Velocity 134.0 cm/s MV Area PHT 3.5 cm squared Mitral E to A Ratio 1.3 MV E' Velocity 65.5 cm/s Mitral E to MV E' Ratio 17.0 Mitral E to LV E' Lateral Ratio 16.8 Mitral E to LV E' Septal Ratio 17.5 TR Peak Velocity 163.0 cm/s TR Peak Gradient 10.6 mmHg Right Atrial Pressure 5.0 mmHg Pulmonary Artery Systolic Pressu 15.6 mmHg PV Peak Velocity 98.0 cm/s RV Acceleration Time 0.1 s RV Ejection Time 0.4 s RV AcT/ET 0.2 FINDINGS Left Ventricle Normal left ventricular size and systolic function, EF 64 %. Mild left ventricular hypertrophy. No regional wall motion abnormalities. Grade III/IV diastolic dysfunction (restrictive filling pattern), severely elevated filling pressures. Right Ventricle The right ventricle is normal in size and function. Right Atrium Mildly increased right atrial size. Left Atrium Mildly increased left atrial size. Mitral Valve Minimally thickened mitral valve Aortic Valve No gross abnormalities noted Tricuspid Valve Trace tricuspid valve regurgitation. Pulmonic Valve Trace pulmonary valve regurgitation. Pericardium No pericardial effusion. Aorta Normal aortic annulus size. IVC Inferior vena cava not visualized. CONCLUSIONS Normal left ventricular size and systolic function, EF 64 %. Mild left ventricular hypertrophy. No regional wall motion abnormalities. Grade III/IV diastolic dysfunction (restrictive filling pattern), severely elevated filling pressures. (Echo contrast - Optison was used to delineate the endocardium and to estimate the LV ejection fraction) Mild biatrial enlargementTrace tricuspid valve regurgitation. Trace pulmonary valve regurgitation. Estimated pulmonary artery peak systolic pressure within normal limits There is no pericardial effusion. Technically difficult study because of the poor ultrasonic window. Dr Ghazal Orozco MD FACC (Electronically Signed) Final Date: 23 October 2022 08:08 S
[2022-10-18] MEDS: perflutren protein-a microsphr 0.22 mg/mL SDV 3 mL IV (09:44)
== END 2022-10-18 08:20 | disposition home or self-care (01) ==
PROVIDERS: PCP Internal Medicine; Visit Provider Internal Medicine Cardiovascular Disease
DX: R07.9 Chest pain, unspecified (principal); I51.7 Cardiomegaly; I51.89 Other ill-defined heart diseases; R93.1 Abnormal findings on diagnostic imaging of heart and coronary circulation
CPT/HCPCS: C8929; Q9956

== ENCOUNTER → 2022-10-30 13:19 | Outpatient (BNVA) | payer MEDICARE, OTHER, SELFPAY | PROVIDERS: PCP Internal Medicine; Visit Provider Nurse Practitioner Family | DX: I51.89 Other ill-defined heart diseases (principal); R94.39 Abnormal result of other cardiovascular function study; R00.2 Palpitations | CPT/HCPCS: 36415; 80048; 83880; 99214 ==

== ENCOUNTER 2023-04-16 07:58 | Outpatient (CLI) | payer MEDICARE, OTHER, SELFPAY | END 2023-04-16 07:59 | disposition home or self-care (01) | LOC: RT 07:59 | PROVIDERS: PCP Internal Medicine; Visit Provider Internal Medicine | DX: R06.09 Other forms of dyspnea (principal) | CPT/HCPCS: 94010; 94726; 94729 ==

== ENCOUNTER 2023-05-07 10:16 | Outpatient (CLI) | payer MEDICARE, OTHER, SELFPAY ==
--- NOTE | 2023-05-07 10:28 | MM_ITS ---
WS: [id number] BILATERAL SCREENING DIGITAL TOMOSYNTHESIS MAMMOGRAM WITH CAD HISTORY: SCREENING COMPARISON: 05/02/2022, 12/29/2020 and 12/08/2019 Bilateral CC and MLO views with tomosynthesis and synthetic mammography submitted. Computer aided det ection analyzed. Breast composition: There are scattered areas of fibroglandular density. No suspicious masses, microc alcifications or architectural distortion. Benign calcifications in each breast. Stable intramammary lymph node RIGHT breast. IMPRESSION: MM/[place] [id number] BI-RADS: 2-Benign FOLLOW UP: 1 Year Follow-up
== END 2023-05-07 10:17 | disposition home or self-care (01) ==
LOC: RAD 10:16
PROVIDERS: PCP Internal Medicine; Visit Provider Internal Medicine
DX: Z12.31 Encounter for screening mammogram for malignant neoplasm of breast (principal); R92.323 Mammographic fibroglandular density, bilateral breasts; R92.1 Mammographic calcification found on diagnostic imaging of breast
CPT/HCPCS: 77063; 77067

== ENCOUNTER 2023-12-09 07:53 | Outpatient (CLI) | payer MEDICARE, OTHER, SELFPAY ==
--- NOTE | 2023-12-09 07:55 | MR_ITS ---
WS: [id number] MRI LUMBAR SPINE NONCONTRAST HISTORY: LUMBAR BACK PAIN W/RADICULOPATHY AFFECTING R LOWER EXTREMITY COMPARISON: 08/01/2021 TECHNIQUE: Sagittal and axial multisequence imaging is submitted. Advanced cervical spondylosis with reversal the normal curvature. Multilevel small central disc protr usions in the cervical and thoracic spine. No high-grade compression. Increase in the lumbar lordosis. L5 anterolisthesis by 6.8 mm. Bones are diffusely osteopenic. Modera te LEFT curvature lumbar spine. Advanced degenerative disc disease throughout the lumbar spine. No fracture. Conus terminates normally at L1-2 disc level. L1-L2: Mild disc bulging and facet arthritis. L2-L3: Mild annular disc bulge with a central disc protrusion, ligamentum flavum and facet arthritis. Mild central with bilateral subarticular recess and RIGHT foraminal stenosis. There is a disc protru gregorio in the RIGHT foramen. Most significant encroachment upon the RIGHT traversing L3 nerve root. L3-L4: Marked annular disc bulging with a central disc protrusion. Central disc protrusion appears ne w with encroachment upon the nerve roots of the thecal sac. Ligamentum flavum and facet arthritis. Mo st significant encroachment upon the traversing RIGHT L4 nerve root. Moderate central and bilateral s ubarticular recess encroachment. L4-L5: Diffuse asymmetric bulging to the RIGHT. Marked ligamentum flavum and facet arthritis. Thecal sac is being deformed. Mild central, bilateral subarticular recess and foraminal stenosis is unchange d. Slightly greater foraminal narrowing on the RIGHT. L5-S1: Annular disc bulging with marked facet and ligamentum flavum hypertrophy. Small central disc p rotrusion. Mild central stenosis. Greater facet joint arthritis on the LEFT causing moderate LEFT for aminal stenosis. There is also encroachment upon the LEFT lateral thecal sac probably contacting the LEFT S1 nerve root. Mild RIGHT foraminal stenosis. MR/MR lumbar spine wo con* [id number] IMPRESSION: 1. Advanced degenerative spondylitic changes throughout the lumbar spine. Only mild progression since the prior study. 2. Levoscoliosis. 3. L5 anterolisthesis by 6.8 mm, minimal progression from [address] udy. 4. Moderate LEFT foraminal stenosis at L5-S1 and facet joint arthritis. 5. L3-4: Moderate central with bilateral subarticular recess encroachment. Gre ater encroachment upon the traversing RIGHT L4 nerve root. 6. L2-3: Mild central with bilateral subarticular recess and RIGHT foraminal s tenosis. Disc protrusion in the RIGHT foramen. Encroachment upon the traversing RIGHT L3 nerve root. 7. L4-5: Mild central, bilateral subarticular recess and foraminal stenosis. S lightly greater narrowing RIGHT foramen due to the asymmetric disc bulging. No change.
== END 2023-12-09 07:54 | disposition home or self-care (01) ==
LOC: RAD 07:54
PROVIDERS: PCP Internal Medicine; Visit Provider Internal Medicine
DX: M54.16 Radiculopathy, lumbar region (principal); M43.16 Spondylolisthesis, lumbar region; M41.86 Other forms of scoliosis, lumbar region; M99.63 Osseous and subluxation stenosis of intervertebral foramina of lumbar region; M47.896 Other spondylosis, lumbar region; M51.26 Other intervertebral disc displacement, lumbar region
CPT/HCPCS: 72148

== ENCOUNTER 2024-04-07 09:51 | Outpatient (CLI) | payer MEDICARE, OTHER, SELFPAY ==
--- NOTE | 2024-04-07 10:02 | XRR_ITS ---
PROCEDURE INFORMATION: Exam: XR Lumbosacral Spine Exam date and time: 04/07/2024 10:17 AM Age: 74 years old Clinical indication: Low back pain; Patient HX: No known injury, pain in lower back around level of crests that does not radiate, ; additional info: Spondylolisthesis at l5 TECHNIQUE: Imaging protocol: Radiologic exam of the lumbosacral spine. Views: 2 or 3 views. COMPARISON: 1. MR lumbar spine wo con* [id number] 12/09/2023 8:08 AM 2. Lumbar spine plain films 06/08/2021. FINDINGS: Bones/joints: Redemonstration of the levoscoliosis centered at L2-L3. Since the prior MRI, there has been interval surgery with posterior spinal hardware fixation with bilateral pedicle screws and interconnecting rods spanning L3 through S1. Interbody construct is noted at L5-S1. Laminectomies at L3, L4 and L5. Lumbar vertebral body heights are maintained. Stable moderate disc space narrowing throughout the lumbar spine. Grade 1 retrolisthesis of L2 on L3 measuring up to 0.5 cm. Soft tissues: Nonspecific metallic density is seen projecting over the right pelvis. Recommend clinical correlation. This was not clearly seen on prior lumbar plain film dated 06/08/2021. XR/XR lumbar spine 2-3V* [id number] IMPRESSION: Interval posterior spinal hardware fixation spanning L3 through S1. No acute bony abnormality. If symptoms persist, consider further evaluation with cross-sectional imaging.
== END 2024-04-07 09:52 | disposition home or self-care (01) ==
LOC: RAD 09:54
PROVIDERS: PCP Internal Medicine; Visit Provider Nurse Practitioner Family
DX: M43.17 Spondylolisthesis, lumbosacral region (principal); Z96.60 Presence of unspecified orthopedic joint implant; M43.16 Spondylolisthesis, lumbar region; R93.89 Abnormal findings on diagnostic imaging of other specified body structures
CPT/HCPCS: 72100

== ENCOUNTER 2024-06-05 09:27 | Outpatient (CLI) | payer MEDICARE, OTHER, SELFPAY ==
--- NOTE | 2024-06-05 09:33 | MM_ITS ---
WS: [id number] BILATERAL SCREENING DIGITAL TOMOSYNTHESIS MAMMOGRAM WITH CAD HISTORY: SCREENING COMPARISON: 05/07/2023, 05/02/2022, 12/08/2019 Bilateral CC and MLO views with tomosynthesis and synthetic mammography submitted. Computer aided detection analyzed. Breast composition: There are scattered areas of fibroglandular density. No suspicious masses, microcalcifications or architectural distortion. Scattered benign calcifications within each breast. MM/MM [facility] tomosynthesis [id number] IMPRESSION: BI-RADS: 2 - Benign. FOLLOW UP: 1 Year Follow-up
== END 2024-06-05 09:28 | disposition home or self-care (01) ==
PROVIDERS: PCP Internal Medicine; Visit Provider Internal Medicine
DX: Z12.31 Encounter for screening mammogram for malignant neoplasm of breast (principal); R92.323 Mammographic fibroglandular density, bilateral breasts; R92.1 Mammographic calcification found on diagnostic imaging of breast
CPT/HCPCS: 77063; 77067

== ENCOUNTER 2024-09-23 09:04 | Outpatient (CLI) | payer MEDICARE, OTHER, SELFPAY ==
--- NOTE | 2024-09-23 09:14 | XRR_ITS ---
PROCEDURE INFORMATION: Exam: XR Lumbosacral Spine Exam date and time: 09/23/2024 9:29 AM Age: 74 years old Clinical indication: Low back pain; Prior surgery; Surgery date: 6+ months; Surgery type: Lumbar fusion; Lower back surgery in dec. Pain since surgery that radiates on the RT side. ; Additional info: Facet arthropathy/lumbar back pain/scoliosis TECHNIQUE: Imaging protocol: Radiologic exam of the lumbosacral spine. Views: 2 or 3 views. COMPARISON: CR XR lumbar spine 2-3V* [id number] 04/07/2024 10:17 AM FINDINGS: Bones/joints: Grossly stable appearing levoscoliosis with the apex centered at the L2-L3 level. Status post bipedicular fusion L3-S1 with interbody spacer at L5-S1. Status post laminectomies at L3, L4 and L5. The fusion hardware appears stable. There are stable multilevel chronic degenerative changes throughout the lower thoracic spine and upper lumbar spine. Soft tissues: Unremarkable. XR/XR lumbar spine 2-3V* [id number] IMPRESSION: Stable lumbosacral spine as above.
== END 2024-09-23 09:05 | disposition home or self-care (01) ==
LOC: RAD 09:10
PROVIDERS: PCP Internal Medicine; Visit Provider Nurse Practitioner Family
DX: M47.817 Spondylosis without myelopathy or radiculopathy, lumbosacral region (principal); M54.16 Radiculopathy, lumbar region; Z98.1 Arthrodesis status; M41.86 Other forms of scoliosis, lumbar region; M47.894 Other spondylosis, thoracic region; M47.896 Other spondylosis, lumbar region
CPT/HCPCS: 72100

== ENCOUNTER 2024-12-28 10:54 | Outpatient (CLI) | payer MEDICARE, OTHER, SELFPAY ==
--- NOTE | 2024-12-28 10:57 | MR_ITS ---
WS: [id number] MRI THORACIC SPINE WITHOUT CONTRAST TECHNIQUE: Sagittal T1, T2 and STIR imaging. Axial T2 imaging. Noncontrast imaging obtained. CLINICAL INFORMATION: PREPROCEDURAL EXAM FINDINGS: Mild thoracic curve. Moderate thoracic kyphosis. Moderate spondylitic changes. Mild disc bulging with small central protrusions worse at T1-T2 T3-T4 T7-T8 T8- T9 T10-T11 T11-T12 and T12-L1. Small disc protrusions in the upper lumbar spine partially visualized. No acute compression fractures. Moderate facet arthropathy lower thoracic spine.Mild LEFT T10-11 bony foraminal narrowing Moderate esophageal hiatal hernia. Adrenal glands are normal. Normal caliber descending thoracic aorta. Mild central canal stenosis cervical spine on the extermination supervisor imaging at C4-C6. MR/MR thoracic spin wo con* [id number] IMPRESSION: 1. Images obtained for preoperative purposes 2. No acute compression fractures. 3. Shallow central protrusions in the upper and mid thoracic spine described a nathaly with mild central canal stenosis T7-T8 and T8-T9. No high-grade central ca nal narrowing. 4. Mild LEFT T10-11 bony foraminal narrowing. 5. Moderate facet arthropathy lower thoracic spine. 6. Moderate esophageal hiatal hernia
== END 2024-12-28 10:55 | disposition home or self-care (01) ==
LOC: RAD 10:54
PROVIDERS: PCP Internal Medicine; Visit Provider Student in an Organized Health Care Education/Training Program
DX: Z01.818 Encounter for other preprocedural examination (principal)
CPT/HCPCS: 72146